=== PATIENT | female | born 2000 | race Caucasian/White ===

== ENCOUNTER 2023-10-19 14:30 | Emergency (ER) | payer OTHER ==
[~2023-10-19] VITALS: Ht 160 cm; Wt 50.0 kg
[2023-10-19 14:37] VITALS: TEMP 98.2
[2023-10-19] MEDS ORDERED: NS 1,000 ML IV ONE (15:45)
[2023-10-19] MEDS ORDERED: Ondansetron 4 MG/2 ML VIAL IV ONE (15:45)
[2023-10-19 15:56] LABS: BASO # 0.1 K/mm3 (0.0-0.2); BASO % 1.1 % (0.0-2.0); EOS # 0.1 K/mm3 (0.0-0.7); EOS % 1.1 % (0.0-4.0); GRAN # 2.3 K/mm3 (1.4-6.5); GRAN % 51.3 % (42.2-75.2); HEMATOCRIT 35.9 % (37.0-47.0); LYMPH # 1.6 K/mm3 (1.2-3.4); LYMPH % 35.8 % (20.0-51.0); MEAN CELL VOLUME 90 fl (80.0-100.0); MEAN CORPUSCULAR HEMOGLOBIN 30 pg (27-31); MEAN CORPUSCULAR HGB CONC 33 g/dl (33.0-37.0); MEAN PLATELET VOLUME 9.5 fl (7.4-10.4); MONO # 0.5 K/mm3 (0.1-0.6); MONO % 10.5 % (1.7-9.3); PLATELET COUNT 204 K/mm3 (130-400)
[2023-10-19 16:08] LABS: ALBUMIN 3.7 g/dL (3.5-5.0); BILIRUBIN,TOTAL 0.3 mg/dL (0.2-1.2); CREATININE, serum 0.84 mg/dL (0.57-1.11); POTASSIUM 3.5 mEq/L (3.5-4.5); TOTAL PROTEIN 7.1 g/dl (6.2-8.1)
[2023-10-19 18:19] VITALS: BP 112/72; PULSE 76
[2023-10-20 01:13] LABS: COLLECTION METHOD CLEAN CATCH
[2023-10-20 01:52] LABS: PH 5.5 (5.0-8.5); URINE APPEARANCE CLEAR (CLEAR/HAZY); URINE BLOOD NEGATIVE (NEGATIVE); URINE COLOR YELLOW (YELLOW); URINE GLUCOSE NEGATIVE (NEGATIVE); URINE KETONE 3+ (NEGATIVE); URINE NITRATE NEGATIVE (NEGATIVE); URINE PROTEIN(semi-quant) TRACE (NEGATIVE); URINE UROBILINOGEN 0.2 E.U/dL (0.2-1.0)
== END 2023-10-19 18:20 | disposition home or self-care (01) ==
LOC: COL.ER 14:30
PROVIDERS: Emergency Medicine
DX: E86.0 Dehydration (principal); R53.83 Other fatigue; R53.81 Other malaise
CPT/HCPCS: J2405; J7030